=== PATIENT | male | born 1980 | race Two or more races ===

== ENCOUNTER 2018-06-11 18:07 | Inpatient (IN) | payer OTHER ==
[~2018-06-11] VITALS: Ht 160 cm; Wt 68.0 kg
[2018-06-11] MEDS ORDERED: IV NS 0.9% 1,000 ML BAG IV ONE ×2 (18:30→22:30)
--- NOTE | 2018-06-11 18:35 | NUR ---
BIB [facility] & [employer]. BIZZARE BEHAVIOR, NON VERBAL, POSS ON DRUGS, BG 100. BLANK STARE. SKIN INTACT, NO ACUTE DISTRESS NOTED. PLACED ON RESTRAINTS PER MD ORDER. WILL CONT SAFETY CHECKS PER PROTOCOL.
[2018-06-11] MEDS ORDERED: OLANZAPINE 10 MG VIAL IM ONE ×2 (18:58→19:00)
[2018-06-11 19:01] LABS: BASOPHILS % (AUTO) 0.5 % (0.0-2.0); EOSINOPHILS % (AUTO) 0.3 % (0.0-6.0); HEMATOCRIT 41 % (39-51); HEMOGLOBIN 13.7 g/dL (13.5-17.5); LYMPHOCYTES # (AUTO) 1.7 /CMM (0.8-4.8); LYMPHOCYTES % (AUTO) 20.5 % (20.0-44.0); MEAN CORPUSCULAR HGB CONC 33 g/dl (31.0-36.0); MEAN CORPUSCULAR VOLUME 86 fL (80-96); MONOCYTES # (AUTO) 0.7 /CMM (0.1-1.30); MONOCYTES % (AUTO) 8.8 % (2.0-12.0); NEUTROPHILS # (AUTO) 5.8 /CMM (1.8-8.9); NEUTROPHILS % (AUTO) 69.9 % (43.0-81.0); PLATELET COUNT (AUTO) 369 /CMM (150-450); RED BLOOD CELL COUNT(AUTO) 4.76 MIL/uL (4.5-6.0); WHITE BLOOD COUNT (AUTO) 8.4 K/uL (4.3-11.0)
[2018-06-11 19:09] LABS: CALCIUM, SERUM 9.1 mg/dL (8.5-10.1); CARBON DIOXIDE 25 mmol/L (21-32); CHLORIDE 104 mmol/L (98-107); GLUCOSE 110 mg/dL (74-106); POTASSIUM 3.4 mmol/L (3.5-5.1); SODIUM SERUM 139 mmol/L (136-145); UREA NITROGEN, BLOOD 9 mg/dL (7-18)
[2018-06-11 19:15] LABS: ALANINE AMINOTRANSFERASE 39 U/L (12-78); ALBUMIN 3.8 g/dL (3.4-5.0); ALCOHOL, BLOOD < 3 mg/dL (0-0); ALKALINE PHOSPHATASE 83 U/L (46-116); ASPARTATE AMINOTRANSFERASE 43 U/L (15-37); BILIRUBIN,DIRECT 0.1 mg/dL (0.0-0.2); BILIRUBIN,TOTAL 0.7 mg/dL (0.2-1.0); TOTAL PROTEIN, SERUM 7.8 g/dL (6.4-8.2)
[2018-06-11 19:16] LABS: ACETAMINOPHEN < 2 ug/ml (10-30)
[2018-06-11] MEDS ORDERED: LORAZEPAM INJ 2 MG/ML VIAL IV ONE (20:00)
--- NOTE | 2018-06-11 20:14 | NUR ---
PT CONT TO HAVE BLANK STARE. CMS INTACT. WILL CONT TO MONITOR
[2018-06-11] MEDS ORDERED: LORAZEPAM INJ 2 MG/ML VIAL ONE (20:28)
[2018-06-11] MEDS ORDERED: LORAZEPAM INJ 2 MG/ML VIAL IM ONE (21:00)
--- NOTE | 2018-06-11 21:11 | NUR ---
URINE COLLECTED VIA STRAIGHT CATH PER PROTOCOL AND SENT TO STAT LAB. PT ZOYA WELL
[2018-06-11 21:43] LABS: APPEARANCE,URINE Clear (CLEAR); BILIRUBIN,URINE Negative (NEGATIVE); BLOOD, URINE Trace-intact Ery/uL (NEGATIVE); COLOR,URINE Yellow (YELLOW); KETONES,URINE 40 (NEGATIVE); LEUKOCYTE ESTERASE ,URINE Small (NEGATIVE); NITRITE, URINE Negative (NEGATIVE); PH,URINE 6.5 (5.0-8.0); PROTEIN,URINE 30 mg/dl (NEGATIVE); UGLUCOSE Negative (NEGATIVE); UROBILINOGEN,URINE 0.2 EU/dL (0.2)
[2018-06-11 22:03] LABS: BACTERIA,URINE Few /HPF (None Seen); SQUAMOUS EPITHELIAL CELL,UR Few /HPF (None Seen)
--- NOTE | 2018-06-11 23:06 | NUR ---
RESTRAINTS DC'D. PT A LITTLE MORE VERBAL, CALM. WILL CONT TO MONITOR.
--- NOTE | 2018-06-11 23:18 | NUR ---
REPORT GIVEN TO JACOB COUCH FOR 327-2 TELE FOR IVA
[2018-06-11 23:40] VITALS: BP 133/88
--- NOTE | 2018-06-11 23:40 | NUR ---
RN MS ADMISSION NOTES RECEIVED PATIENT FROM ER VIA [facility]. PATIENT IS ALERT AND ORIENTED X3, VERBALLY RESPONSIVE, ABLE TO MAKE NEEDS KNOWN. SLOW TO RESPONSE. BREATHING EVEN AND UNLABORED. NO SOB NOTED. TOLERATING ROOM AIR. NO COMPLAINTS OF PAIN OR DISCOMFORT. NO FACIAL GRIMACING. IV ON RIGHT HAND G#20 INTACT AND PATENT. SKIN DRY AND WARM TO TOUCH. AFEBRILE. SKIN ASSESSMENT RENDERED, WITH 2 ABRASIONS FOUND, PICTURES TAKEN AND PLACED IN CHART. PATIENT REFUSED TO TAKE OFF PANTS WELL PUT PANTS ALL THE WAY DOWN FOR SKIN ASSESSMENT OF [place] AREA AND LEGS. PER PATIENT "THERE IS NOTHING THERE." ALL BELONGINGS ACCOUNTED FOR. MEDICATIONS FROM HOME WERE ALL IN A ZIPLOCK. PATIENT UNABLE TO RECALL DOSAGES. ORIENTED TO THE USE OF UNIT AMENITIES. ALL OTHER NEEDS ATTENDED TO SAFETY MEASURES IN PLACE. CALL LIGHT WITHIN REACH. WILL CONTINUE TO MONITOR.
--- NOTE | 2018-06-11 23:45 | NUR ---
PT TRANSFERRED TO FLOOR
[2018-06-12] MEDS ORDERED: HYDROCODONE/APAP 5/325MG 1 EACH TABLET PO PRN
[2018-06-12] MEDS ORDERED: MAGNESIUM HYDROXIDE 30 ML UDC PO PRN
[2018-06-12] MEDS ORDERED: ACETAMINOPHEN 325 MG TABLET PO PRN
[2018-06-12] MEDS ORDERED: IV NS 0.9% 1,000 ML IV PRN
[2018-06-12] MEDS ORDERED: ONDANSETRON HCL/PF 4 MG/2 ML VIAL IVP PRN
[2018-06-12] MEDS ORDERED: Z GUARD REMEDY 2 OZ OINT TP PRN
[2018-06-12] MEDS ORDERED: ZOLPIDEM TARTRATE 5 MG TABLET PO PRN
[2018-06-12] MEDS ORDERED: POTASSIUM CHLORIDE 20 MEQ TAB.PRT.SR PO ONE
[2018-06-12] MEDS ORDERED: LORAZEPAM INJ 2 MG/ML VIAL IV PRN
[2018-06-12] MEDS ORDERED: DOLU50TA PO (04:33)
[2018-06-12] MEDS ORDERED: NORT25CA PO (04:33)
[2018-06-12] MEDS ORDERED: EMTR1TAB17 PO (04:34)
[2018-06-12] MEDS ORDERED: GABA-534 PO (04:34)
[2018-06-12] MEDS ORDERED: METH500T PO (04:34)
[2018-06-12] MEDS ORDERED: ACYC400T PO (04:34)
[2018-06-12 06:54] LABS: BASOPHILS % (AUTO) 0.5 % (0.0-2.0); EOSINOPHILS % (AUTO) 2.9 % (0.0-6.0); HEMATOCRIT 36 % (39-51); LYMPHOCYTES # (AUTO) 1.8 /CMM (0.8-4.8); LYMPHOCYTES % (AUTO) 33.6 % (20.0-44.0); MEAN CORPUSCULAR HGB CONC 33 g/dl (31.0-36.0); MEAN CORPUSCULAR VOLUME 88 fL (80-96); MONOCYTES # (AUTO) 0.6 /CMM (0.1-1.30); MONOCYTES % (AUTO) 11.9 % (2.0-12.0); NEUTROPHILS # (AUTO) 2.7 /CMM (1.8-8.9); NEUTROPHILS % (AUTO) 51.1 % (43.0-81.0); PLATELET COUNT (AUTO) 327 /CMM (150-450); RED BLOOD CELL COUNT(AUTO) 4.15 MIL/uL (4.5-6.0); WHITE BLOOD COUNT (AUTO) 5.3 K/uL (4.3-11.0)
--- NOTE | 2018-06-12 06:59 | NUR ---
RN MS CLOSING NOTES PATIENT RESTING IN BED. NO ACUTE CHANGES THROUGHOUT SHIFT. BREATHING EVEN AND UNLABORED. NO SOB NOTED. TOLERATING ROOM AIR. NO COMPLAINTS OF PAIN OR DISCOMFORT. NO FACIAL GRIMACING. IV ON RIGHT HAND G#20 INTACT AND PATENT WITH NS RUNNING AT 150ML/HR. SKIN DRY AND WARM TO TOUCH. AFEBRILE. ALL OTHER NEEDS ATTENDED TO SAFETY MEASURES IN PLACE. CALL LIGHT WITHIN REACH. WILL ENDORSE TO ONCOMING NURSE FOR IVA.
[2018-06-12 07:21] LABS: CALCIUM, SERUM 8.1 mg/dL (8.5-10.1); CREATININE 0.9 mg/dL (0.6-1.3); MAGNESIUM 2.2 mg/dL (1.8-2.4); PHOSPHORUS 3.7 mg/dL (2.5-4.9); POTASSIUM 3.7 mmol/L (3.5-5.1)
--- NOTE | 2018-06-12 07:30 | NUR ---
MS RN OPENING NOTE RECEIVED PATIENT IN BED. ALERT ORIENTED X4, SLIGHTLY DELAYED RESPONSE TO QUESTIONS OBSERVED. ON ROOM AIR, TOLERATING WELL . IN NO APPARENT DISTRESS OR DISCOMFORT AT THIS TIME. RESPIRATIONS EVEN AND UNLABORED. DENIES PAIN DENIES PAIN AND SOB. PATIENT IS ABLE TO COMMUNICATE NEEDS. RIGHT HAND 20G IVC WITH FLUIDS RUNNING AT 150ML/HR. KEPT CLEAN AND COMFORTABLE. ALL NEEDS ATTENDED, SAFETY MEASURES IN PLACE, BED IN LOW LOCKED POSITION, SIDE RAILS UP X2, CALL LIGHT WITHIN EASY REACH. WILL CONTINUE TO MONITOR.
[2018-06-12] MEDS ORDERED: CYAN10009 PO (07:57)
[2018-06-12 08:00] VITALS: BP 113/74
--- NOTE | 2018-06-12 09:30 | NUR ---
WOUND CARE CONSULT: LIMITED ASSESSMENT TODAY TO LEFT LOWER BACK HEALING ABRASION. PT REFUSED FULL SKIN ASSESSMENT. NO SIGN OF INFECTION NOTED. RECOMMENDATIONS MADE FOR SKIN PROTECTION AND WOUND CARE. DISCUSSED WITH NURSING STAFF. PT IS CONTINENT AND INDEPENDENT WITH BED MOBILITY. WILL SEE PRN. CARPIO IN AGREEMENT WITH PLAN OF CARE. Addendum: 06/12/18 at 0932 by RAMONE WEEMS [email or web address] Amended: Links added.
--- NOTE | 2018-06-12 10:24 | NUR ---
Social service consult requested by LEANNE Ugalde for drug use. Pt. is a 38 year old male who was admitted to [facility]. Per ED notes: the pt. had meant someone online and went to his home for a planned date/meeting. He arrived at the person's home and was apparently acting normal on arrival. He went to use the bathroom and came out acting very bizarre according to the report. He became more and more altered and the witness called 911. It is unclear if the patient took the drugs following the bathroom.SW met with pt. bedside. Pt. is alert and oriented x 4. Pt. was standing up next to his bed when SW met with him. Pt. states he lives with family at [id number] [place] [address] in [place]. [place] MINDI inquired with pt. how did he end up in [facility]? Pt. stated, " Long story" and didn't want to elaborate. Pt. states he has been using methamphetamines frequently for the past three weeks. Pt. stated he was sober for three years and relapsed a 1 1/2 ago. Pt. was attending therapy and outpatient treatment but is not anymore. MINDI offered pt. drug and counseling resources, however pt. declined. Pt. stated he did cocaine yesterday as well but does not use it frequently. Pt. denies alcohol, marijuana and cigarette use. Pt. states he is going to get back home to [place] in an Uber. Pt. appears anxious to leave and requested for his nurse to take out his IV. MINDI informed pt. she will notify the devulcanizer charger Nino. MINDI encouraged pt. to attend a drug treatment program. No other social service needs are requested at this time. MINDI is available if needed.
--- NOTE | 2018-06-12 10:30 | NUR ---
MS BIOMETRIC FINGERPRINTING TECHNICIAN NOTE RECEIVED ORDER FOR DISCHARGE. PATIENT IS MEDICALLY STABLE. VITAL SIGNS STABLE. ALERT ORIENTED X4. ON ROOM AIR, IN NO APPARENT DISTRESS OR DISCOMFORT AT THIS TIME. RESPIRATIONS EVEN AND UNLABORED. PATIENT STATED HE WANTS TO GO NOW HIS RIDE IS HERE. HE REFUSED TO WAIT FOR DISCHARGE PAPERWORK. REFUSED DISCHARGE TEACHINGS. STATED, "I DON'T NEED IT, I WILL SEE MY DOCTOR LATER." TURKEY EGG GATHERER TANESHA INFORMED. REFUSED VACCINATIONS. REFUSED BELONGINGS LIST CHECK. PATIENT REFUSED SKIN PHOTOS. REFUSED TO SIGN ANY PAPERWORK. PATIENT'S OWN MEDICATIONS WERE PICKED UP FROM PHARMACY ON THE WAY OUT AND PROVIDED BACK TO THE PATIENT. IV CATH REMOVED PRIOR TO DISCHARGE, ID BAND REMOVED. PATIENT WAS ESCORTED DOWN BY PRIMARY RN AT 1030.
== END 2018-06-12 10:40 | disposition home or self-care (01) | DRG 351 ==
LOC: ER 18:14 → TELE 22:17 → MED 06-12 00:04
PROVIDERS: ADMIT Nurse Practitioner Acute Care; ATTEND Student in an Organized Health Care Education/Training Program
DX: M62.82 Rhabdomyolysis (principal); G92 Toxic encephalopathy; F14.10 Cocaine abuse, uncomplicated; D63.8 Anemia in other chronic diseases classified elsewhere; F32.9 Major depressive disorder, single episode, unspecified; F15.10 Other stimulant abuse, uncomplicated
CPT/HCPCS: 36415; 70450-TC; 71045-TC; 80048-TC; 80061-TC; 80076-TC; 80305; 81000-TC; 82550-TC; 83735-TC; 84100-TC; 85025-TC; 87081-TC; 87086-TC; G0378; G0480; J2060; J3490; J7030

== ENCOUNTER 2019-10-31 02:44 | Emergency (ER) | payer OTHER ==
[~2019-10-31] VITALS: Ht 160 cm; Wt 59.0 kg
[~2019-10-31 02:44] MED LIST: ACYC400T PO; CYAN-51 PO; DOLU50TA PO; EMTR1TAB17 PO; GABA-534 PO; METH500T PO; NORT25CA PO
--- NOTE | 2019-10-31 02:44 | NUR ---
BIB PRIVATE AUTO C/O "METH OD". PT ALTERED, AGITATED, UNCOOPERATIVE. PER PERSON THAT DROPPED OF PT HE WITNESSED "PT INSERTED SOMETHING PER RECTUM". PLACE PT ON PREPARED FOODS SUPERVISOR, CONTINUOUS POX. 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 ER MD AT BEDSIDE TO EVAL PT WITH ORDERS RECEIVED. WILL CARRY OUT ORDERS.
[2019-10-31] MEDS ORDERED: LORAZEPAM INJ 2 MG/ML VIAL ONE ×2 (02:49→04:47)
--- NOTE | 2019-10-31 02:58 | NUR ---
Daly catheter inserted per sterile protocal. Immediate output 200 ML of urine, Sent to lab.
[2019-10-31] MEDS ORDERED: LORAZEPAM INJ 2 MG/ML VIAL IV ONE ×2 (03:00→05:00)
[2019-10-31] MEDS ORDERED: IV NS 0.9% 1,000 ML IV ONE ×2 (03:00→03:30)
--- NOTE | 2019-10-31 03:02 | NUR ---
SPOKE TO THE PERSON WHO DROPPED OFF THE PATIENT. STATED "HE TOOK METH, THEN HE PUT SOME IN HIS ASS." ALSO, STATED HE MET THE PT ON KARLO.
[2019-10-31 03:11] LABS: BASOPHILS # (AUTO) 0.1 /CMM (0.0-0.2); BASOPHILS % (AUTO) 0.9 % (0.0-2.0); EOSINOPHILS % (AUTO) 0.2 % (0.0-6.0); HEMATOCRIT 43 % (39-51); HEMOGLOBIN 14.1 g/dL (13.5-17.5); LYMPHOCYTES # (AUTO) 4.8 /CMM (0.8-4.8); LYMPHOCYTES % (AUTO) 45.8 % (20.0-44.0); MEAN CORPUSCULAR HGB CONC 33 g/dl (31.0-36.0); MEAN CORPUSCULAR VOLUME 88 fL (80-96); MONOCYTES # (AUTO) 0.6 /CMM (0.1-1.30); MONOCYTES % (AUTO) 5.5 % (2.0-12.0); NEUTROPHILS % (AUTO) 47.6 % (43.0-81.0); PLATELET COUNT (AUTO) 805 /CMM (150-450); RED BLOOD CELL COUNT(AUTO) 4.89 MIL/uL (4.5-6.0); WHITE BLOOD COUNT (AUTO) 10.5 K/uL (4.3-11.0)
--- NOTE | 2019-10-31 03:11 | NUR ---
PT REMAINS VERY AGITATED, RESTLESS, CONSTANTLY SCREAMING AND UNCOOPERATIVE. ER MD STERLING AWARE WITH ORDERS RECEIVED. WILL MEDICATE PT ORDERED.
[2019-10-31] MEDS ORDERED: diphenhydrAMINE HCL 50 MG/ML VIAL ONE (03:15)
[2019-10-31 03:27] LABS: ALANINE AMINOTRANSFERASE 71 U/L (12-78); ALBUMIN 3.9 g/dL (3.4-5.0); ALCOHOL, BLOOD < 3 mg/dL (0-0); ALKALINE PHOSPHATASE 99 U/L (46-116); ASPARTATE AMINOTRANSFERASE 37 U/L (15-37); BILIRUBIN,DIRECT 0.1 mg/dL (0.0-0.2); BILIRUBIN,TOTAL 0.3 mg/dL (0.2-1.0); CALCIUM, SERUM 9.2 mg/dL (8.5-10.1); CARBON DIOXIDE 20 mmol/L (21-32); CHLORIDE 102 mmol/L (98-107); CREATININE 1.4 mg/dL (0.6-1.3); GLUCOSE 154 mg/dL (74-106); POTASSIUM 3.6 mmol/L (3.5-5.1); SODIUM SERUM 142 mmol/L (136-145); UREA NITROGEN, BLOOD 16 mg/dL (7-18)
[2019-10-31] MEDS ORDERED: HALOPERIDOL LACTATE INJ 5 MG/ML VIAL IM ONE ×2 (03:30→05:00)
[2019-10-31] MEDS ORDERED: diphenhydrAMINE HCL 50 MG/ML VIAL IV ONE (03:30)
[2019-10-31 03:42] LABS: ACETAMINOPHEN 0 ug/ml (10-30); SALICYLATE 1.7 mg/dL (2.8-20.0)
[2019-10-31 04:07] LABS: APPEARANCE,URINE Clear (CLEAR); BILIRUBIN,URINE Negative (NEGATIVE); BLOOD, URINE Trace-lysed Ery/uL (NEGATIVE); COLOR,URINE Yellow (YELLOW); KETONES,URINE Negative (NEGATIVE); LEUKOCYTE ESTERASE ,URINE Negative (NEGATIVE); NITRITE, URINE Negative (NEGATIVE); PROTEIN,URINE 100 mg/dl (NEGATIVE); UGLUCOSE Negative (NEGATIVE); UROBILINOGEN,URINE 0.2 EU/dL (0.2)
[2019-10-31 04:25] LABS: BACTERIA,URINE None seen /HPF (None Seen); MUCUS,URINE Few /LPF (None Seen); RBC,URINE 0-2 /HPF (0-2); SQUAMOUS EPITHELIAL CELL,UR Few /HPF (None Seen); WBC,URINE 0-2 /HPF (0-3)
[2019-10-31] MEDS ORDERED: HALOPERIDOL LACTATE INJ 5 MG/ML VIAL ONE (04:47)
--- NOTE | 2019-10-31 04:52 | NUR ---
PT RESTING COMFORTABLY.
--- NOTE | 2019-10-31 05:52 | NUR ---
PT STATED HE FEELS BETTER. VSS. ON MONITOR AND PULSE OX. PROVIDED WITH MORE BLANKETS.
--- NOTE | 2019-10-31 06:47 | NUR ---
Patient discharged to home in stable condition. Written and verbal after care instructions given. Patient verbalizes understanding of instruction. Pt ambulated with steady gait. vss.
--- NOTE | 2019-10-31 06:47 | NUR ---
IV removed. Catheter intact and site benign. Pressure and 4x4 applied to site. No bleeding noted.
[2019-10-31 06:48] VITALS: BP 119/72
== END 2019-10-31 06:49 | disposition home or self-care (01) ==
LOC: ER 02:44
DX: F15.90 Other stimulant use, unspecified, uncomplicated (principal); Z79.899 Other long term (current) drug therapy
CPT/HCPCS: 36415; 71045; 80048; 80076; 80305; 80307; 80329; 81001; 85025; 93005; 96372; 96374; 96375; 96376; 99285; G0480; J1200; J1630; J2060 ×2; J7030; 81000-TC